=== PATIENT | male | born 1945 | race Caucasian/White ===

== ENCOUNTER 2019-07-12 10:45 | Outpatient (CLI) | payer MEDICARE ==
[~2019-07-12] VITALS: Ht 185.4 cm; Wt 117.7 kg
[2019-07-12] MEDS ORDERED: FLUTICASONE PRO16 GM NASAL (11:08)
[2019-07-12] MEDS ORDERED: VIBRAMYCIN 100100 MG PO (11:08)
[2019-07-12] MEDS ORDERED: SPIRIVA RESPIMAT4 GM INH (11:09)
[2019-07-12] MEDS ORDERED: LIPITOR20 MG PO (11:09)
[2019-07-12] MEDS ORDERED: ASPIRIN81 MG PO (11:09)
[2019-07-12] MEDS ORDERED: FLOMAX0.4 MG PO (11:09)
[2019-07-12 11:33] VITALS: BP 150/75; Ht 185.4 cm; Wt 117.7 kg
[2019-07-12 11:50] LABS: HEMATOCRIT 38.8 % (42.0-54.0); MCH 30.5 pg (26.0-34.0); MCHC 33.5 g/dL (31.0-37.0); MCV 91.1 fL (80.0-100.0); RBC 4.26 10x6/uL (4.20-6.10); RDW 13.7 % (11.5-14.5); WBC 6.5 10x3/uL (4.8-10.8)
--- NOTE | 2019-07-12 12:00 | NUR ---
SPOKE WITH PHYSICIAN REGARDING RECENT DENTAL WORK AND CURRENT COURSE OF ANTIBIOTICS THAT PATIENT IS ON FOR TOOTH INFECTION. WILL RESCHEDULE PROCEDURE.
[2019-07-12 12:01] LABS: INR 0.98 (0.85-1.17); PROTIME 12.9 SECONDS (11.6-15.0)
[2019-07-12 12:02] LABS: APTT 29.9 SECONDS (22.8-39.4)
--- NOTE | 2019-07-12 13:00 | NUR ---
PHYSICIAN AT BEDSIDE TO UPDATE PATIENT AND SPOUSE REGARDING RESCHEDULING OF PROCEDURE RELATED TO DENTAL HISTORY. IV REMOVED AND PATIENT DISCHARGED.
== END 2019-07-12 13:00 ==
LOC: D.CATH 10:45 → EDSEX 10:45 → D.CATH 13:00
PROVIDERS: ATTEND Internal Medicine Interventional Cardiology
DX: I49.5 Sick sinus syndrome (principal); Z53.9 Procedure and treatment not carried out, unspecified reason

== ENCOUNTER 2019-07-24 11:20 | Outpatient (CLI) | payer MEDICARE ==
[~2019-07-24] VITALS: Ht 185.4 cm; Wt 120.5 kg
--- NOTE | ~2019-07-24 | HEMODYNAMI ---
PATIENT:LUCY CAMARGO MEDICAL RECORD: [id number] : 45 LOCATION:[facility] ADMISSION DATE: 07/24/19 Generatedon:07/24/201913:38 Patient name: LUCY CAMARGO Patient #: [id number] : 1945 Date of study: 07/24/2019 Page: Of Hemodynamic Procedure Report Patient Data Patient Demographics First Name: LUCY Gender: Male Last Name: MARY JO : 1945 Patient #: [id number] Age: 74 year(s) Race: Unknown SSN: [id number] Additional ID: [id number] Contact details [address]: [address] [place] [address] State: [place] City: [place] Zip code: [address] Past Medical History Allergies: No known allergies Admission Admission Data Admission Date: 07/24/2019 Admission Time: 11:20 Arrival Date: 07/24/2019 Arrival Time: 0:00 Admit Source: Other Insurance Payor: Medicaid [facility] #: [id number] Height (in.): 72 BSA: 2.39 (m2) Height (cm.): 182.88 BMI: 35.53 (kg/m2) Weight (lbs.): 262 Weight (kg.): 118.84 Lab Results Lab Result Date: 07/24/2019 Lab Result Time: 0:00 Biochemistry Name Units Result Min Max BUN mg/dl 27 --(----)-* 7 18 Creatinine mg/dl 1.4 --(----)*- 0.6 1.3 CBC Name Units Result Min Max Hemoglobin g/dl 13 -*(----)-- 13.5 17.5 Procedure Procedure Types Cath Procedure Diagnostic Procedure PPM/ICD PPM Dual Implant Sedation Charges Moderate Sedation up to 30 minutes Procedure Description Procedure Date Procedure Date: 07/24/2019 Procedure Start Time: 13:15 Procedure End Time: 13:37 Procedure Staff Name Function Niraj Castro MD Performing Physician Pavan Izaguirre MD Assisting physician Ashley Macdonald RT Monitor Sammy Myles RN Nurse Alma Bunch RT Scrub Procedure Data Cath Procedure Fluoroscopy Diagnostic fluoroscopy Total fluoroscopy Time: 1.3 time: 1.3 min min Diagnostic fluoroscopy Total fluoroscopy dose: 72 dose: 72 mGy mGy Estimated blood loss: 5 ml Procedure Complications No complications Procedure Medications Medication Administration Route Dosage 0.9% NaCl I.V. 100 ml/hr Oxygen etCO2 Nasal cannula 2 l/min Lidocaine 1% added to field 20 Ancef (1Gm/50ml NS) I.V.P.B 1 g Versed I.V. 2 mg Fentanyl I.V. 100 mcg Versed I.V. 2 mg Fentanyl I.V. 50 mcg Versed I.V. 2 mg Fentanyl I.V. 50 mcg Hemodynamics Rest BSA: 2.39 (m2) HGB: 13 (g/dl) O2 Consumption: Estimated: 257.22 (ml/min) O2 Cons umption indexed: Estimated:107.62 (ml/min/m) Heart Rate: 50 (bpm) Snapshots Pre Cath Intra NCS Post Cath Vital Signs Time Heart Resp SPO2 etCO2 NIBP (mmHg) Rhythm Pain Sedation Rate (ipm) (%) (mmHg) Status Level (bpm) 13:08:34 53 15 95 34.3 151/67(124) NSR 0 (11) 10(A) , No pain 13:12:52 53 17 96 0.7 153/73(116) NSR 0 (11) 10(A) , No pain 13:18:15 62 13 92 0 122/68(108) NSR 0 (11) 9(A) , No pain 13:23:27 58 14 91 10.4 135/78(92) NSR 0 (11) 9(A) , No pain 13:27:41 80 11 95 8.2 144/76(123) NSR 0 (11) 9(A) , No pain 13:31:59 71 8 97 0 124/72(109) NSR 0 (11) 10(A) , No pain 13:36:09 80 11 97 26.8 132/73(102) NSR 0 (11) 10(A) , No pain Medications Time Medication Route Dose Verified Delivered Reason Notes Effectiv eness by by 13:05:59 0.9% NaCl I.V. 100 Sammy Sammy Per ml/hr Shar Myles physician RN RN 13:06:09 Oxygen etCO2 2 Sammy Sammy for low 02 Nasal l/min Lorigan Lorigan sats cannula RN RN 13:06:40 Lidocaine added 20ml Sammy Sammy for local 1% to vial Lorigan Lorigan anesthetic field ( x 2 RN RN ) 13:07:16 Ancef I.V.P.B 1 g Sammy Sammy Per (1Gm/50ml Shar Myles physician NS) RN RN 13:09:50 Versed I.V. 2 mg Sammy Sammy for Lorigan Lorigan sedation RN RN 13:10:11 Fentanyl I.V. 100 Sammy Sammy for mcg Lorigan Lorigan sedation RN RN 13:12:41 Versed I.V. 2 mg Sammy Sammy for Lorigan Lorigan sedation RN RN 13:12:48 Fentanyl I.V. 50 Sammy Sammy for mcg Lorigan Lorigan sedation RN RN 13:15:56 Versed I.V. 2 mg Sammy Sammy for Lorigan Lorigan sedation RN RN 13:16:02 Fentanyl I.V. 50 Sammy Sammy for mcg Lorigan Lorigan sedation RN financial sales professional Log Time Note 12:27:10 Arrival Date: 07/24/2019 12:00:00 AM 12:27:24 Insurance Payor : Medicaid 12:27:26 Admit Source: Other 12:27:33 Patient Height : 72 inches 12:27:39 Patient Weight : 262 lbs 13:02:59 Lab Result : BUN 27 mg/dl 13:02:59 Lab Result : Hemoglobin 13 g/dl 13:02:59 Lab Result : Creatinine 1.4 mg/dl 13:03:30 Procedure type changed to Cath procedure, Diagnostic procedure, PPM/ICD, PPM Dual Implant, Sedation Charges, Moderate Sedation up to 30 minutes 13:03:43 Diagnostic Cath Status : Elective 13:05:33 Procedure Status Elective Heart Cath (OP). 13:05:36 Alma ADAMS(R) sent for patient. Start room use. 13:05:59 0.9% NaCl 100 ml/hr I.V. was administered by Sammy Myles RN; Per physician; Verbal order read back and verified. 13:06:09 Oxygen 2 l/min etCO2 Nasal cannula was administered by Sammy Myles RN; for low 02 sats; Verbal order read back and verified. 13:06:10 Time tracking: Regular hours (M-F 7:00 - 5:00) 13:06:15 Plan of Care:Hemodynamics will remain stable., Cardiac rhythm will remain stable., Comfort level will be maintained., Respiratory function will remain adequate., Patient/ family verbilizes understanding of procedure., Procedure tolerated without complication., Recovers from procedure without complications.. 13:06:22 Patient received from Pre/Post Procedure Room to CCL 3 Alert and oriented. Tansferred to table in Supine position. 13:06:24 Warm blankets applied, and fuad hugger turned on for patient comfort. 13:06:24 Correct patient and procedure confirmed by team. 13:06:25 ECG and BP/O2 sat monitors applied to patient. 13:06:26 Vital chart was started 13:06:27 Baseline sample Acquired. 13:06:34 Rhythm: sinus rhythm 13:06:35 Full Disclosure recording started 13:06:40 Lidocaine 1% 20ml vial ( x 2 ) added to field was administered by Sammy Myles RN; for local anesthetic; Verbal order read back and verified. 13:06:58 H&P Date Dictated: 07/23/2019 Within 30 days and on chart.. 13:06:59 Pre-procedure instructions explained to patient. 13:07:02 Family in waiting room. 13:07:04 Patient NPO since Midnight. 13:07:16 Ancef (1Gm/50ml NS) 1 g I.V.P.B was administered by Sammy Myles RN; Per physician; Verbal order read back and verified. 13:07:43 Patient allergic to No known allergies 13:07:45 Is the patient allergic to Iodine/contrast media? No. 13:07:47 Is patient on blood thinner?No 13:08:06 Patient diabetic? No. 13:08:10 Snore? Yes 13:08:12 Sleep apnea? Yes 13:08:17 Airway obstruction? No ? 13:08:22 Dentures? No ? 13:08:25 Patient pain scale 0/10 ?. 13:08:32 IV patent on arrival in right antecubital with 0.9% NaCl at [facility]. 13:08:38 Lab results completed and on chart. 13:08:54 Left chest area was prepped with chlora-prep and draped in sterile fashion 13:08:56 Alarms reviewed by R. N. 13:08:56 Sharps counted by scrub and verified by R.N. 13:08:57 Physician paged 13:08:58 Physician arrived 13:08:58 --------ALL STOP TIME OUT------ 13:09:06 Final Timeout: patient, procedure, and site verified with staff and physician. All members of the team are in agreement. 13:09:12 Left chest site verified by team. 13:09:16 Fire Safety Assessment: A--An alcohol-based skin anteseptic being used preoperatively., C--Open oxygen or nitrous oxide is being used., D--An ESU, laser, or fiber-optic light is being used. 13:09:23 Physical assessment completed. ASA score P 3 - A patient with severe systemic disease as per Niraj Castro MD. 13:09:29 Sedation plan: IV Moderate Sedation Medication:Versed, Fentanyl 13:09:48 Use device set KARLA PPM 13:09:50 Versed 2 mg I.V. was administered by Sammy Myles RN; for sedation; Verbal order read back and verified. 13:10:11 Fentanyl 100 mcg I.V. was administered by Sammy Myles RN; for sedation; Verbal order read back and verified. 13:10:19 [employer] customer field representative Fer Gray present for procedure. 13:10:55 Procedure started. 13:12:00 Pre sharps counted by scrub and verified by RN: Sutures: 7; Sponges: 5; Stick needles: 2; Skin needles: 2; Blade: 1; Cautery: 1 13:12:26 Grounding pad site Left thigh. 13:12:28 Grounding pad site free from injury. 13:12:38 Lidocaine 1% was administered to left subclavicular area by Pavan Izaguirre MD . 13:12:41 Versed 2 mg I.V. was administered by Sammy Myles RN; for sedation; Verbal order read back and verified. 13:12:41 Incision made to left subclavicular area. 13:12:45 2-0 Ticron Multipack ([id number]) opened to sterile field. 13:12:45 3-0 Vicryl Single Pack [id number] opened to sterile field. 13:12:46 5-0 Monocryl PS2 [id number] opened to sterile field. 13:12:47 Cautery Tip Sample Processor opened to sterile field. 13:12:48 Fentanyl 50 mcg I.V. was administered by Sammy Myles RN; for sedation; Verbal order read back and verified. 13:12:48 Cautery Pushbutton Pencil opened to sterile field. 13:12:49 Mepilex Dressing (792170) opened to sterile field. 13:15:56 Versed 2 mg I.V. was administered by Sammy Myles RN; for sedation; Verbal order read back and verified. 13:16:02 Fentanyl 50 mcg I.V. was administered by Sammy Myles RN; for sedation; Verbal order read back and verified. 13:16:42 Generator pocket made/opened. 13:16:54 Left subclavian vein accessed with 7Fr Peel Away Sheath. 13:18:28 Ventricular lead inserted and advanced. 13:18:30 Atrial lead inserted and advanced. 13:21:34 Peel-a-way sheath was split and removed. 13:21:38 Ventricular lead tested. 13:21:41 Atrial lead tested. 13:23:18 PPM Dual was attached to lead(s) and inserted into pocket. 13:23:29 PPM Dual was inserted subcutaneously to left chest. 13:23:33 Device pocket was irrigated with Ancef. 13:23:39 Atrial lead attachment was completed with 2-0 vicryl. 13:23:49 Ventricular lead attachment was completed with 2-0 vicryl. :23:58 Generator was sutured in place with 2-0 vicryl. 13:24:00 Subcutaneous closure was completed with 3-0 vicryl. 13:24:07 Skin closure was completed with 5-0 monocryl. 13::38 Parameters-- Generator: Mode: dddr. Lower Rate: 60bpm. Upper Rate: 120bpm. 13:30:06 Parameters--Ventricular P/R Wave: 5.0mV. Current: 4mA; Threshold: .3V; Impedence: 1417OHMS. 13:30:58 Parameters--Atrial P/R Wave: 6.3mV. Current: ?mA; Threshold: .5V; Impedence: 670OHMS. 13:31:04 Lt Chest incision was dressed with Mepilex dressing. 13:31:[address] Generator [id number] opened to sterile field. 13:32:21 Medtronic 4574-45 PPM Lead opened to sterile field. 13:32:21 Medtronic 4074-58 PPM Lead opened to sterile field. 13:35:04 Post sharps counted by scrub and verified by RN: Sutures: 7; Sponges: 5; Stick needles: 2; Skin needles: 2; Blade: 1; Cautery: 1 13:35:10 Procedure ended.(Physican Out) 13:35:20 Fluoroscopy time 01.30 minutes. 13:35:26 Fluoroscopy dose: 72 mGy 13:35:26 Flurop Dose total: 72 13:35:33 Dose Area Product 651 mGy/cm. 13:35:38 Sharps counted by scrub and verified by R.N. 13:35:41 Insertion/operative site no bleeding no hematoma. 13:35:53 Post-procedure physical assessment completed. ASA score P 2 - A patient with mild systemic disease as per Niraj Castro MD. 13:35:59 Post procedure rhythm: paced 13:36:04 Estimated blood loss: 5 ml 13:36:31 Post procedure instruction explained to patient.Patient verbalizes understanding. 13:36:44 Procedure and supply charges have been captured, reviewed, submitted and are correct. 13:37:06 Procedure Complication : No complications 13:37:09 Vital chart was stopped 13:37:31 Report given to [facility]. 13:37:34 Patient transfered to [facility] with Bed. 13:37:37 Procedure ended. 13:37:37 Full Disclosure recording stopped 13:37:41 End room use (Document Last) 13:38:09 End room use (Document Last) 13:38:24 End room use (Document Last) Device Usage Item Name Manufacture Quantity Catalog Hospital Part Current Minima l Lot# / Number Charge Number Stock Stock Serial# Code 2-0 Ticron Ethicon 2 [id number] 726369 50425 205651 5 Multipack ([id number]) 3-0 Vicryl Ethicon 1 [id number] 740991 971771 245989 5 Single Pack [id number] 5-0 Monocryl Ethicon 1 Y495G 016442 059573 787346 5 PS2 Y495G Cautery Tip Microtek 1 [id number] 840265 858560 271362 5 Sample Processor [employer] Cautery Microtek 1 [id number] 081053 77594 780151 5 Pushbutton [employer] Inc[employer] Pencil Mepilex Cardinal 1 625050 284247 572399 101433 5 Dressing Health (813138) Medtronic Medtronic 1 [id number] 201818 8306243 109492 5 SD XT [id number] Generator EX.2 W1DR01 Medtronic Medtronic 1 4574-45 322026 451892 085323 5 4574-45 PPM [id number] Lead EX. 2021-03-27 Medtronic Medtronic 1 4074-58 282889 799189 636121 5 4074-58 PPM [id number] Lead EX.2 Signature Audit [place] Stage Time Signature Unsigned Intra-Procedure 07/24/2019 Sammy 1:38:09 PM Shar MURILLO Intra-Procedure 07/24/2019 Ashley Macdonald 1:38:25 PM RT(R) Intra-Procedure 07/24/2019 Niraj Richter 1:38:54 PM Timur [place] [id number] [place] [address]
--- NOTE | ~2019-07-24 | OP ---
PATIENT NAME: LUCY CAMARGO MEDICAL RECORD: [id number] :45 LOCATION:D.M2 D.2115 ADMISSION DATE: SURGEON: PAVAN ACOSTA MD DATE OF OPERATION: 07/24/2019 PREOPERATIVE DIAGNOSES: 1. Sick sinus syndrome with pauses. 2. Benign prostatic hypertrophy. POSTOPERATIVE DIAGNOSES: 1. Sick sinus syndrome with pauses. 2. Benign prostatic hypertrophy PROCEDURE: 1. Left subclavian vein dual lead pacemaker placement. 2. Fluoroscopic interpretation. SURGEON: Pavan Acosta MD CO-SURGEON: Niraj Dong MD REPORT OF PROCEDURE: The patient's left chest was prepped and draped in sterile fashion. A total of 20 mL of 1% lidocaine with epinephrine was infused into the surrounding tissues. A transverse incision was made on the left superior lateral chest and a subcutaneous pouch was made over the pectoral fascia. The needles were used to cannulate the left subclavian vein and guidewires were advanced with ease. Fluoro was used to note that the wires were in good position in the venous system. The dilator trocar devices were placed over the wires and the wires and dilators were removed. The leads were then advanced through the trocars and made sure that they rested in the superior vena cava. At this point, Dr. Dong positioned the leads appropriately in the atrium and ventricle. Once the leads were noted to be in good position and these were sutured in to place with a 2-0 TiCron. The leads were affixed to the pacemaker and then this was placed into the subcutaneous pouch. We sutured the pacemaker to the pectoral fascia using a single interrupted 2-0 Ti-Cron. The wound was irrigated out with antibiotic solution. The subcutaneous tissues were all reapproximated with interrupted 3-0 Vicryls and the skin was closed with running subcutaneous 5-0 Monocryl. COMPLICATIONS: None. CONDITION: Stable. ANESTHESIA: Local MAC. BLOOD LOSS: Minimal. TRANSINT:[id number] Voice Confirmation ID: [id number] DOCUMENT ID: [id number] OPERATIVE REPORT [id number] LUCY CAMARGO PAVAN ACOSTA MD CC: [id number] DICTATION DATE: 07/24/19 1340 SECURITIES SALES ASSOCIATE: 07/25/[address] [facility] [address] [place] [address]
[~2019-07-24 11:20] MED LIST: ASPIRIN81 MG PO; FLOMAX0.4 MG PO; FLUTICASONE PRO16 GM NASAL; LIPITOR20 MG PO; SPIRIVA RESPIMAT4 GM INH; VIBRAMYCIN 100100 MG PO
[2019-07-24] MEDS ORDERED: PROSCAR5 MG PO (12:00)
[2019-07-24 12:11] VITALS: BP 149/69; BMI 35.0
[2019-07-24 12:31] LABS: CALCIUM 8.5 mg/dL (8.5-10.1); CARBON DIOXIDE 23.7 mmol/L (21.0-32.0); CREATININE - SERUM 1.4 mg/dL (0.6-1.3); POTASSIUM - SERUM 4.7 mmol/L (3.5-5.1)
[2019-07-24 13:40] LABS: APTT 27.5 SECONDS (22.8-39.4); INR 0.93 (0.85-1.17); PROTIME 12.4 SECONDS (11.6-15.0)
[2019-07-24 14:13] VITALS: BP 140/79; Ht 185.4 cm; Wt 120.5 kg
[2019-07-24 20:00] VITALS: BP 135/67
[2019-07-25] VITALS: BP 160/85
[2019-07-25 04:00] VITALS: BP 115/74
--- NOTE | 2019-07-25 08:19 | OP ---
PATIENT NAME: LUCY CAMARGO MEDICAL RECORD: [id number] :[birth year] LOCATION:D.M2 D.6 ADMISSION DATE: SURGEON: PRAVIN ELKINS MD DATE OF OPERATION: 07/24/2019 PROCEDURE: Lead portion of permanent pacemaker placement. INDICATION: Sick sinus syndrome with AV block and pauses. SURGEON: Pavan Izaguirre MD DESCRIPTION OF PROCEDURE: After the left subclavian was cannulated via modified Seldinger technique via Dr. Izaguirre, first under fluoroscopic guidance, I placed the RV lead in the RV apex without difficulty. After adequate R waves and thresholds were obtained, the right atrial lead was placed in the right atrial appendage without difficulty. After adequate P waves and thresholds were obtained, the leads were attached to the appropriate poles of the generator and the pocket was closed via Dr. Izaguirre. IMPRESSION: Successful lead portion of permanent pacemaker placement. ESTIMATED BLOOD LOSS: Minimal. COMPLICATIONS: None. DISPOSITION: To the floor, stable. TRANSINT:[id number] Voice Confirmation ID: [id number] DOCUMENT ID: [id number] PRAVIN ELKINS MD at 0819 CC: [id number] DICTATION DATE: 07/24/19 1329 EPIC SPECIALIST: 07/24/19 2220 [facility] [address] [place] [id number]
== END 2019-07-25 10:49 | disposition home or self-care (01) ==
LOC: D.CATH 11:20 → D.M2 13:37 → D.CATH 07-25 10:49
PROVIDERS: ATTEND Internal Medicine Interventional Cardiology
DX: I49.5 Sick sinus syndrome (principal); N40.0 Benign prostatic hyperplasia without lower urinary tract symptoms; R42 Dizziness and giddiness

== ENCOUNTER 2019-07-31 06:54 | Day surgery (SDC) | payer MEDICARE ==
[~2019-07-31] VITALS: Ht 185.4 cm; Wt 116.6 kg
[~2019-07-31 06:54] MED LIST changes: +PROSCAR5 MG PO
[2019-07-31 07:20] LABS: HEMOGLOBIN 13.8 g/dL (13.5-17.5); MCH 30.2 pg (26.0-34.0); MCHC 33.7 g/dL (31.0-37.0); MCV 89.7 fL (80.0-100.0); MEAN PLATELET VOLUME 9.9 fL (7.4-10.4); RBC 4.57 10x6/uL (4.20-6.10); RDW 13.4 % (11.5-14.5); WBC 7.8 10x3/uL (4.8-10.8)
[2019-07-31 08:07] VITALS: BP 141/79; Ht 185.4 cm; Wt 116.6 kg
--- NOTE | 2019-07-31 15:20 | OP ---
PATIENT NAME: LUCY CAMARGO MEDICAL RECORD: [id number] :[birth year] LOCATION:[facility] ADMISSION DATE: SURGEON: GERSON CASTELLANOS MD DATE OF OPERATION: 07/31/2019 SURGEON: Gerson Castellanos MD ANESTHESIA: TIVA by Dee Keys. DIAGNOSES: Obstructive benign prostatic hyperplasia. PSA 0.3 (05/25/2019), IPSS equals 26, quality of life score is 4 on tamsulosin. PROCEDURE: UroLift times 5 (4 in box around the bladder neck and 1 to pin the median lobe to the right side). FINDINGS: Bladder neck obstruction with a large median lobe. Single ureteral orifices bilaterally with no bladder tumors. ESTIMATED BLOOD LOSS: None. CLINICAL HISTORY: This is a 74-year-old male who has obstructive BPH symptoms. He has been on tamsulosin for years. The tamsulosin is giving him lightheadedness, absent ejaculation, and decreased short-term memory. In terms of his voiding, he has nocturia times 8 with having to void every 30-45 minutes. He does not have any daytime urinary frequency. He does have urge incontinence. The stream is weak and he has postvoid dribbling. He has no allergies to medication. He was given Levaquin IV ironer or presser to the OR. DESCRIPTION OF PROCEDURE: The patient was given IV sedation. He was placed into lithotomy position. He was then prepped and draped. The UroLift scope was introduced. The finding was that the bladder neck was a site of obstruction with the lateral lobes being not obstructive. There was a large median lobe also. The median lobe was larger on the right side than the left side. Going into the bladder, no bladder tumors were seen. We started with a box configuration to open up the bladder neck. A 1.5 cm distal to the bladder neck, one unit was placed on each side at the anterolateral sulcus. Then, another unit was placed, one on each side at the mid urethral level that was in the anterior to posterior direction. This opened up the bladder neck. The median lobe was still presenting some obstruction. I decided to pin it to the right side. The UroLift unit was placed up against the median lobe and pressure was applied to push the median lobe towards the right side, the unit was fired and it held. The bladder neck was now wide open. The bladder was left partly full for a voiding trial. I will see the patient in followup next week to check on his voiding symptoms and his postvoid residual. TRANSINT:[id number] Voice Confirmation ID: [id number] DOCUMENT ID: [id number] OPERATIVE REPORT [id number] LUCY CAMARGO, GERSON Jeffries MD at 1520 CC: [id number] DICTATION DATE: 07/31/19 1015 MASTER OCEAN YACHT: 07/31/19 1449 [address] [place] [id number] [place] [id number]
--- NOTE | 2019-07-31 15:35 | NUR ---
1445 DRESSED AWAKE & ALERT. PT GIVEN DISCHARGE INFORMATION INCLUDING MED REC, RTC APPT., [facility] D/C INSTRUCTIONS & UROLIFT D/C INSTRUCTIONS. PT ASKED IF HE WAS TO CONTINUE FLOMAX. CALL PLACED TO UROLOGY CLINIC SPOKE WITH NURSE, BRI. STATES PT TO STOP FINASTERIDE & TAMSULOSIN. PT & WIF INFORMED. TO PRIVATE CAR PER WHEELCHAIR BY THIS NURSE. HOME WITH , KIRSTEN CAMARGO. Gissell ROONEY R.N.
== END 2019-07-31 14:45 | disposition home or self-care (01) ==
LOC: D.OPS 06:54
PROVIDERS: Anesthesiology; ATTEND Urology
DX: N40.1 Benign prostatic hyperplasia with lower urinary tract symptoms (principal); J44.9 Chronic obstructive pulmonary disease, unspecified; E78.00 Pure hypercholesterolemia, unspecified; I49.9 Cardiac arrhythmia, unspecified

== ENCOUNTER → 2019-09-10 08:46 | Outpatient (CLI) | payer MEDICARE ==
[2019-07-31 08:07] VITALS: BMI 33.9
== END | disposition home or self-care (01) ==
LOC: D.HCCARDIO 08:46
PROVIDERS: ATTEND Internal Medicine Cardiovascular Disease
DX: R55 Syncope and collapse (principal)

== ENCOUNTER → 2019-09-18 06:37 | Outpatient (CLI) | payer MEDICARE ==
[~2019-09-18] VITALS: Ht 185.4 cm; Wt 116.0 kg
--- NOTE | ~2019-09-18 | HEMODYNAMI ---
PATIENT:LUCY CAMARGO MEDICAL RECORD: [id number] : 45 LOCATION:D.CAT ADMISSION DATE: 09/18/19 Generatedon:09/18/20198:51 Patient name: LUCY CAMARGO Patient #: [id number] : 1945 Date of study: 09/18/2019 Page: Of Hemodynamic Procedure Report Patient Data Patient Demographics Procedure consent was obtained First Name: LUCY Gender: Male Last Name: MARY JO : 1945 Middle Initial: SUNDAY Age: 74 year(s) Patient #: [id number] Race: SSN: [id number] Additional ID: [id number] Contact details Address: [address] [place] [address] State: [place] City: [place] Zip code: [address] Past Medical History Allergies: No known allergies Admission Admission Data Admission Date: 09/18/2019 Admission Time: 6:37 Arrival Date: 09/18/2019 Arrival Time: 0:00 Admit Source: Other Insurance Payor: Private health insurance [facility] #: [id number] Height (in.): 73 BSA: 2.39 (m2) Height (cm.): 185.42 BMI: 33.74 (kg/m2) Weight (lbs.): 255.74 Weight (kg.): 116 Lab Results Lab Result Date: 09/18/2019 Lab Result Time: 0:00 Biochemistry Name Units Result Min Max BUN mg/dl 23 --(----)-* 7 18 Creatinine mg/dl 1 --(--*-)-- 0.6 1.3 eGFR ml/min 78 *-(----)-- 90 120 NONAFRICAN CBC Name Units Result Min Max Hematocrit % 41.7 -*(----)-- 42 54 Hemoglobin g/dl 13.9 --(*---)-- 13.5 17.5 Procedure Procedure Types Cath Procedure Diagnostic Procedure LHC LHC w/Coronaries Sedation Charges Moderate Sedation up to 15 minutes Procedure Description Procedure Date Procedure Date: 09/18/2019 Procedure Start Time: 8:34 Procedure End Time: 8:47 Procedure Staff Name Function Naomi Tyler RT Scrub Michelle Diaz RN Nurse Natalio Anderson MD Performing Physician Alma Bunch RT Monitor Indication Dizziness and lightheadedness Procedure Data Cath Procedure Fluoroscopy Diagnostic fluoroscopy Total fluoroscopy Time: 3.3 time: 3.3 min min Diagnostic fluoroscopy Total fluoroscopy dose: 650 dose: 650 mGy mGy Contrast Material Contrast Material Type Amount (ml) Isovue 300 70 Entry Location Entry Primary Successful Side Size Upsize Upsize Entry Closure Hanson ccessful Closure Location (Fr) 1 (Fr) 2 (Fr) Remarks Device Remarks Radial Right 6 Fr Mechanical artery Short Compression Estimated blood loss: 5 ml Diagnostic catheters Device Type Used For End Catheter Placement DIAGNOSTIC Daryl 110cm Procedure 5Fr catheter ([id number]) DIAGNOSTIC Arpin 110cm 5 Procedure Fr catheter ([id number]) Procedure Complications No complications Procedure Medications Medication Administration Route Dosage Oxygen etCO2 Nasal cannula 2 l/min Lidocaine 2% added to field 20 Heparin Flush Bag added to field 2 bags (1000units/500ml NS) 0.9% NaCl I.V. 100 ml/hr Versed I.V. 2 mg Fentanyl I.V. 50 mcg Versed I.V. 1 mg Fentanyl I.V. 50 mcg Versed I.V. 2 mg Versed I.V. 1 mg Fentanyl I.V. 25 mcg Hemodynamics Rest BSA: 2.39 (m2) HGB: 13.9 (g/dl) O2 Consumption: Estimated: 265.57 (ml/min) O2 Co nsumption indexed: Estimated:111.12 (ml/min/m) Heart Rate: 59 (bpm) Pressure Samples Time Site Value (mmHg) Purpose Heart Use Rate(bpm) 8:38 LV 130/0,3 Snapshot 76 8:39 LV 100/-2,3 Pullback 68 8:39 AO 111/60(82) Pullback 68 Gradients Valve Time Site 1 Site 2 Mean SEP/DFP Peak To Heart Use (mmHg) (sec/min) Peak Rate (mmHg) (bpm) Aortic 8:39 LV AO 0 5 0 68 100/-2,3 111/60(82) Calculations Valve P-P Mean Valve Index Valve Source Name Gradient Area Flow (cm2) Aortic 0 0 0 0 Snapshots Pre Cath Intra NCS Post Cath Vital Signs Time Heart Resp SPO2 etCO2 NIBP (mmHg) Rhythm Pain Sedation Rate (ipm) (%) (mmHg) Status Level (bpm) 8:19:51 62 13 93 0 162/80(121) NSR 0 (11) 10(A) , No pain 8:24:15 60 13 95 20.9 157/81(134) NSR 0 (11) 10(A) , No pain 8:28:35 60 15 95 0 146/74(106) NSR 0 (11) 9(A) , No pain 8:33:01 60 12 95 0 145/79(115) NSR 0 (11) 9(A) , No pain 8:38:17 63 15 96 0 124/71(90) NSR 0 (11) 9(A) , No pain 8:42:33 63 13 92 0 130/70(100) NSR 0 (11) 9(A) , No pain 8:46:53 60 12 94 0 124/70(103) NSR 0 (11) 10(A) , No pain Medications Time Medication Route Dose Verified Delivered Reason Notes Effe ctiveness by by 8:19:28 Oxygen etCO2 2 Natalio Buffie used for Nasal l/min Justin Diaz RN procedure cannula 8:19:35 Lidocaine 2% added 20ml Natalio Natalio for local to vial Justin Anderson MD anesthetic field 8:19:41 Heparin Flush added 2 Natalio Natalio used for Bag to bags Justin Anderson MD procedure (1000units/500ml field NS) 8:19:49 0.9% NaCl I.V. 100 Natalio Buffie Per ml/hr Justin Diaz RN physician 8:24:23 Versed I.V. 2 mg Natalio Buffie for Justin Diaz RN sedation 8:24:31 Fentanyl I.V. 50 Natalio Buffie for mcg Justin Diaz RN sedation 8:27:33 Versed I.V. 1 mg Natalio Buffie for Justin Diaz RN sedation 8:27:37 Fentanyl I.V. 50 Natalio Buffie for mcg Justin Diaz RN sedation 8:33:16 Fentanyl I.V. 25 Natalio Buffie for mcg Justin Diaz RN sedation 8:33:37 Versed I.V. 2 mg Natalio Michelle for Justin Diaz RN sedation 8:39:09 Versed I.V. 1 mg Natalio Michelle for Justin Diaz RN sedation Procedure Log Time Note 8:00:39 Michelle Diaz RN sent for patient. Start room use. 8:07:24 Informed consent obtained and on chart 8:07:35 Diagnostic Cath Status : Elective 8:09:08 Lab Result : Hemoglobin 13.9 g/dl 8::08 Lab Result : Hematocrit 41.7 % 8::08 Lab Result : eGFR NONAFRICAN 78 ml/min 8::08 Lab Result : BUN 23 mg/dl 8::08 Lab Result : Creatinine 1 mg/dl 8:09:20 Arrival Date: 09/18/2019 12:00:00 AM 8:09:21 Admit Source: Other 8:09:37 Procedure Status Elective Heart Cath (OP). 8:09:47 Time tracking: Regular hours (M-F 7:00 - 5:00) 8:09:53 Plan of Care:Hemodynamics will remain stable., Cardiac rhythm will remain stable., Comfort level will be maintained., Respiratory function will remain adequate., Patient/ family verbilizes understanding of procedure., Procedure tolerated without complication., Recovers from procedure without complications.. 8:09:57 Patient received from Pre/Post Procedure Room to CCL 1 Alert and oriented. Tansferred to table in Supine position. 8:09:59 Warm blankets applied, and fuad hugger turned on for patient comfort. 8:10:00 ECG and BP/O2 sat monitors applied to patient. 8:10:00 Correct patient and procedure confirmed by team. 8:10:09 Pre-procedure instructions explained to patient. 8:10:09 H&P Date Dictated: 08/23/2019 Within 30 days and on chart.. 8:10:10 Pre-op teaching completed and patient verbalized understanding. 8:10:13 Family unavailable. 8:10:14 Patient NPO since Midnight. 8:10:17 Is the patient allergic to Iodine/contrast media? No. 8:10:22 Was the patient premedicated? N/A 8:10:24 Is patient on blood thinner?Yes 8:10:26 Patient diabetic? No. 8:10:50 ----Pre-sedation anethsthesia assessment.---- 8:10:53 Previous problem with sedation/anesthesia? No ? 8:10:54 Snore? Yes 8:10:55 Sleep apnea? Yes 8:10:57 Deviated septum? No 8:10:58 Sticks out tongue? Yes 8:10:58 Opens mouth fully? Yes 8:11:02 Airway obstruction? Yes copd 8:11:07 Dentures? Yes in tight 8:11:26 If diabetic: On Metformin? No 8:11:34 Pre procedure: right dorsailis pedis pulse 2+ Normal; easily identifiable; not easily obliterated 8:11:36 Modified Jose's test Ulnar < 7 seconds 8:11:39 Patient pain scale 0/10 ?. 8:11:44 IV patent on arrival in left antecubital with 0.9% NaCl at [facility]. 8:11:48 Lab results completed and on chart. 8:12:01 Stress Test: yes; abnormal INFERIOR WALL 8:12:05 Right Radial & Right Groin area was prepped with chlora-prep and draped in sterile fashion 8:12:06 Alarms reviewed by R. N. 8:12:07 Sharps counted by scrub and verified by R.N. 8:12:12 Use device set Radial Dx or PCI 8:18:38 Vital chart was started 8:18:39 Full Disclosure recording started 8:18:52 Insurance Payor : Private health insurance 8:19:03 Patient Height : 73 inches 8:19:07 Patient Weight : 255.74 lbs 8:19:22 Patient allergic to No known allergies 8:19:28 Oxygen 2 l/min etCO2 Nasal cannula was administered by Michelle Diaz RN; used for procedure; Verbal order read back and verified. 8:19:35 Lidocaine 2% 20ml vial added to field was administered by Natalio Anderson MD; for local anesthetic; Verbal order read back and verified. 8:19:41 Heparin Flush Bag (1000units/500ml NS) 2 bags added to field was administered by Natalio Anderson MD; used for procedure; Verbal order read back and verified. 8:19:49 0.9% NaCl 100 ml/hr I.V. was administered by Michelle Diaz RN; Per physician; Verbal order read back and verified. 8:21:05 ACIST Syringe (40614) opened to sterile field. 8:21:06 Medline Cath Pack ([id number]) opened to sterile field. 8:21:07 ACIST Hand Control (04366) opened to sterile field. 8:21:07 Bag Decanter (2002) opened to sterile field. 8:21:08 ACIST Manifold (12811) opened to sterile field. 8:21:09 MBrace Wrist Support ([id number]) opened to sterile field. 8:21:10 NEEDLE Cook 21G 4cm Radial ([id number]) opened to sterile field. 8:21:12 SHEATH 6FR RAIN (6735566) opened to sterile field. 8:21:12 EMERALD Guide Wire (630-965) opened to sterile field. 8:22:25 Baseline sample Acquired. 8:22:30 Rhythm: sinus bradycardia, paced 8:22:35 --------ALL STOP TIME OUT------ 8:22:36 Final Timeout: patient, procedure, and site verified with staff and physician. All members of the team are in agreement. 8:22:37 Right Radial & Right Groin site verified by team. 8:22:41 Fire Safety Assessment: A--An alcohol-based skin anteseptic being used preoperatively., C--Open oxygen or nitrous oxide is being used., D--An ESU, laser, or fiber-optic light is being used. 8:22:44 Physical assessment completed. ASA score P 2 - A patient with mild systemic disease as per Michelle Diaz RN. 8:22:48 2) 60-89 Mildly reduced kidney function, and other findings (as for stage 1) point to kidney disease. 8:22:50 Maximum allowable contrast dose (3.7 X eGFR X 0.75)216 ml. 8:22:55 Sedation plan: IV Moderate Sedation Medication:Versed, Fentanyl 8:23:35 Indication : Dizziness and lightheadedness 8:24:23 Versed 2 mg I.V. was administered by Michelle Diaz RN; for sedation; Verbal order read back and verified. 8:24:31 Fentanyl 50 mcg I.V. was administered by Michelle Diaz RN; for sedation; Verbal order read back and verified. 8:27:33 Versed 1 mg I.V. was administered by Michelle Diaz RN; for sedation; Verbal order read back and verified. 8:27:37 Fentanyl 50 mcg I.V. was administered by Michelle Diaz RN; for sedation; Verbal order read back and verified. 8:33:16 Fentanyl 25 mcg I.V. was administered by Michelle Diaz RN; for sedation; Verbal order read back and verified. 8:33:37 Versed 2 mg I.V. was administered by Michelle Diaz RN; for sedation; Verbal order read back and verified. 8:33:48 Procedure started. 8:34:01 Local anesthetic to right radial artery with Lidocaine 2% by Natalio Anderson MD.INITIAL ACCESS ONLY 8:35:40 A 6 Fr Short sheath was inserted into the Right Radial artery 8:36:32 A DIAGNOSTIC Daryl 110cm 5Fr catheter ([id number]) was advanced over the wire and used for Procedure. 8:36:37 LV gram done using THOMAS 8:37:36 JWIRE REMOVED UNABLE TO ENGAGE CHANGING WIRE.. 8:38:14 GLIDE WIRE Super Stiff Angled 260cm ([id number]) opened to sterile field. 8:38:48 Injector settings: Ml/sec: 5, Volume: 15, 8:38:56 LV hemodynamics recorded. 8:39:09 Versed 1 mg I.V. was administered by Michelle Diaz RN; for sedation; Verbal order read back and verified. 8:39:13 EF : 50 % 8:39:45 RCA angiography performed. 8:39:51 Injector settings: Ml/sec: 3, Volume: 6, 8:41:13 CHANGING CATHETERS DUE TO NOT BEING ABLE TO ENGAGE LCA. 8:41:35 Catheter exchanged over wire. 8:41:45 A DIAGNOSTIC Arpin 110cm 5 Fr catheter ([id number]) was advanced over the wire and used for Procedure. 8:42:28 LCA angiography performed. 8:42:30 Injector settings: Ml/sec: 3, Volume: 6, 8:42:58 Injector settings: Ml/sec: 4, Volume: 8, 8:43:58 ACCDominant side:Co-Dominant 8:44:35 Catheter removed. 8:44:43 ZEPHYR REGULAR TR BAND (434909) opened to sterile field. 8:44:56 Sheath removed intact; hemostasis achieved with Mechanical Compression to the Right Radial artery. 8:44:58 Procedure ended.(Physican Out) 8:45:07 Fluoroscopy time 03.30 minutes. 8:45:11 Fluoroscopy dose: 650 mGy 8:45:11 Flurop Dose total: 650 8:45:17 Dose Area Product 49699 mGy/cm. 8:45:20 Contrast amount:Isovue 300 70ml. 8:45:24 Maximum allowable dose exceeded? No. 8:45:25 Sharps counted by scrub and verified by R.N. 8:45:29 Williams band inflated with 10cc of air. 8:45:43 Post Procedure Pulses reassessed and unchanged 8:45:46 Post procedure: right dorsailis pedis pulse 2+ Normal; easily identifiable; not easily obliterated. 8:45:52 Post-procedure physical assessment completed. ASA score P 2 - A patient with mild systemic disease as per Natalio Anderson MD. 8:45:59 Post procedure rhythm: unchanged. 8:46:04 Estimated blood loss: 5 ml 8:46:05 Post procedure instruction explained to patient.Patient verbalizes understanding. 8:46:06 Patient needs reinforcement of post procedure teaching. 8:46:24 Procedure type changed to Cath procedure, Diagnostic procedure, LHC, LHC w/Coronaries, Sedation Charges, Moderate Sedation up to 15 minutes 8:46:53 Procedure and supply charges have been captured, reviewed, submitted and are correct. 8:46:56 Procedure Complication : No complications 8:47:02 [facility] Findings: mild to moderate CAD (<70%) 8:47:04 See physician's report for complete and final results. 8:47:04 Operative report dictated upon procedure completion. 8:47:06 Report given to Pre/Post Procedure Room. 8:47:10 Patient transfered to Pre/Post Procedure Room with Stretcher. 8:47:14 Vital chart was stopped 8:47:16 Full Disclosure recording stopped 8:47:16 Procedure ended. 8:47:22 End room use (Document Last) 8:47:37 End room use (Document Last) 8:47:59 End room use (Document Last) Device Usage Item Name Manufacture Quantity Catalog Hospital Part Current Minima l Lot# / Number Charge Number Stock Stock Serial# Code ACIST Acist 1 27346 212400 [id number] [id number] 20 [id number] Inc. Medline Medline 1 [id number] [id number] 37878 [id number] 5 Cath Pack ([id number]) Bag Microtek 1 076131 50234 728491 5 Decanter Medical Inc. () ACIST Hand Acist 1 43958 770196 540015 [id number] 5 Control Medical (93405) Systems Inc ACIST Acist 1 29880 831355 860556 162092 5 Manifold Medical (46203) Systems Inc MBrace Advanced 1 140-0250-00 801685 11807 484374 5 Wrist Vascular Support Dynamics ([id number]) NEEDLE Cook Cook Medical 1 [id number] 837055 294145 948970 5 21G 4cm Radial ([id number]) EMERALD Cardinal 1 502-716 719492 037683 683534 5 Guide Wire Health (502455) SHEATH 6FR Cardinal 1 [id number] 056114 [id number] 898605 5 [facility] Health (7825914) DIAGNOSTIC Terumo 1 40-5023 171260 028295 369884 5 Daryl 110cm 5Fr catheter (323349) GLIDE WIRE Terumo 1 LC7908 625994 928971 095173 5 Super Stiff Angled 260cm ([id number]) DIAGNOSTIC Terumo 1 40-5013 806520 123816 353811 5 Arpin 110cm 5 Fr catheter (082030) ZEPHYR Cardinal 1 100147 424348 [id number] 093205 5 REGULAR TR Health BAND (645181) Signature Audit [place] Stage Time Signature Unsigned Intra-Procedure 09/18/2019 Alma Bunch 8:47:37 AM RT(R) Intra-Procedure 09/18/2019 Michelle Diaz RN 8:47:59 AM Intra-Procedure 09/18/2019 Natalio Anderson MD 8:51:27 AM [facility] [address] [place] [address]
[~2019-09-18 06:37] MED LIST changes: +DESMOPRESSIN A0.2 MG PO
[2019-09-18 07:30] VITALS: BP 155/80; Ht 185.4 cm; Wt 116.0 kg
[2019-09-18 07:37] LABS: BASOPHILS 0.3 % (0-2); EOSINOPHILS 4.6 % (0-7); HEMATOCRIT 41.7 % (42.0-54.0); HEMOGLOBIN 13.9 g/dL (13.5-17.5); IMMATURE GRANULOCYTES 0.3 % (0-5); LYMPHOCYTES 20.8 % (15-50); MCH 30.2 pg (26.0-34.0); MCHC 33.3 g/dL (31.0-37.0); MCV 90.5 fL (80.0-100.0); MEAN PLATELET VOLUME 9.5 fL (7.4-10.4); MONOCYTES 9.3 % (2-11); NEUTROPHILS 64.7 % (40-80); PLATELET COUNT 250 10x3/uL (130-400); RBC 4.61 10x6/uL (4.20-6.10); RDW 13.1 % (11.5-14.5); WBC 6.7 10x3/uL (4.8-10.8)
[2019-09-18 07:40] LABS: ALT (SGPT) 19 U/L (10-68); CALC OSMOLALITY 264 mosm/kg (275-300); CALCIUM 8.8 mg/dL (8.5-10.1); CHLORIDE - SERUM 99 mmol/L (98-107); CHOL - HDL RATIO 3.6 ratio (2.3-4.9); CHOLESTEROL, TOTAL 181 mg/dL (0-200); GLUCOSE 103 mg/dL (74-106); HDL CHOLESTEROL 51 mg/dL (32-96); LDL CHOLESTEROL 110 mg/dL (0-100); LDL-HDL RATIO 2.2 ratio (1.5-3.5); POTASSIUM - SERUM 4.2 mmol/L (3.5-5.1); SODIUM 130 mmol/L (136-145); TRIGLYCERIDE 100 mg/dL (30-200); UREA NITROGEN 23 mg/dL (7-18); eGFR NON AFRICAN AMERICAN 78 mL/min (90-120)
--- NOTE | 2019-09-18 09:00 | NUR ---
PT REC'D TO ROOM 4 VIA STRETCHER FROM ELECTRONICS WORKER. MONITORS ESTAB. PT DROWSY. SEE PROCUREMENT PROFESSIONAL LOGISTICS. ALARMS ON AND C/L IN REACH.
--- NOTE | 2019-09-18 09:15 | NUR ---
R WRIST SITE C/D/I, NO S/S BLEEDING OR HEMATOMA. R HAND WARM WITH BRISK CAP REFILL. B/P 117/58, HR 60 PACED. PT AROUSES EASILY, DENIES PAIN OR NEEDS. ALARMS ON AND C/L IN REACH.
--- NOTE | 2019-09-18 09:45 | NUR ---
R WRIST SITE C/D/I, NO S/S BLEEDING OR HEMATOMA. VSS. HAND WARM, PT DENIES PAIN OR NEEDS. ALARMS ON AND C/L IN REACH.
--- NOTE | 2019-09-18 10:00 | NUR ---
R WRIST SITE C/D/I, 2CC AIR REMOVED FROM Z BAND. PT GIVEN COFFEE AND PUDDING PER REQUEST. VSS. C/L IN REACH.
--- NOTE | 2019-09-18 10:15 | NUR ---
TOTAL OF 5 CC AIR REMOVED FROM Z BAND. NO S/S BLEEDING OR HEMATOMA. WILL CONT CLOSE MONITORING.
--- NOTE | 2019-09-18 10:47 | NUR ---
PT UP TO BR INDEPENDENTLY. GAIT STEADY. BACK TO BED. ALL AIR NOW REMOVED FROM Z BAND. WILL CONT CLOSE MONITORING. VSS. C/L IN REACH.
--- NOTE | 2019-09-18 11:12 | NUR ---
R WRIST SITE C/D/I, NO S/S BLEEDING OR HEMATOMA. PIV D/C'D INTACT, DSG APPLIED. PT ALLOWED UP TO GET DRESSED.
--- NOTE | 2019-09-18 11:25 | NUR ---
R WRIST SITE C/D/I, Z BAND OFF AND DSG APPLIED AND ARM BAND IN PLACE. ALL D/C INSTRUCTIONS REVIEWED WITH PT - VERBALIZES UNDERSTANDING.
--- NOTE | 2019-09-18 11:30 | NUR ---
PT D/C'D VIA WC TO PRIVATE VEHICLE WITH - PT HAS ALL BELONGINGS AND PAPERWORK.
== END | disposition home or self-care (01) ==
LOC: D.CATH 06:37
PROVIDERS: ATTEND Internal Medicine Cardiovascular Disease
DX: R55 Syncope and collapse (principal); R94.39 Abnormal result of other cardiovascular function study; R42 Dizziness and giddiness; Z95.0 Presence of cardiac pacemaker